=== PATIENT | female | born 1965 | race Native Hawaiian/Other Pacific Islander ===

== ENCOUNTER 2017-12-28 02:25 | Emergency (ER) | payer OTHER ==
[2017-12-28] MEDS ORDERED: Albuterol-Ipratrop 3 mg / 0.5 (3 ml) UD ONE (02:42)
[2017-12-28] MEDS ORDERED: Albuterol-Ipratrop 3 mg / 0.5 (3 ml) UD INH STA (02:48)
[2017-12-28] MEDS ORDERED: Albuterol 0.083% Inhal Sol (2.5 mg/3 mL) UD IH STA (03:09)
[2017-12-28] MEDS ORDERED: Albuterol 0.083% Inhal Sol (2.5 mg/3 mL) UD ONE (03:16)
--- NOTE | 2017-12-28 03:32 | C.PDOC ---
History Of Present Illness 52 female w/PMHx of asthma, no hx of intubation, come in for evaluation of cold sx for apst 4-5 days. Pt reports, (+) nasal congestion, dry cough. Pt was seen by PMD 5 days ago and received Rx: Zithromax, Tussinex. Pt reports, "for past 2 days, feel mild chest tightness with cough, was using Pro-Air, ran out yesterday". Otherwise, pt denies fever, chills, headache, dizziness, drooling, neck pain, CP, dyspnea, palpitation, wheezing, abd. pain, N/V/D, UTI sx. Ambulate to ED for evaluation, not in any apparent distress. Time Seen by Provider: 12/28/17 02:36 Chief Complaint (Nursing): Cough, Cold, Congestion History Per: Patient Past Medical History Reviewed: Historical Data, Nursing Documentation, Vital Signs Vital Signs: Last Vital Signs Temp 98.9 F 12/28/17 02:40 Pulse 71 12/28/17 02:40 Resp 20 12/28/17 02:40 BP 149/77 12/28/17 02:40 Pulse Ox 98 12/28/17 02:40 - Medical History PMH: Asthma Family History: States: No Known Family Hx - Social History Hx Tobacco Use: No Hx Alcohol Use: No Hx Substance Use: No Review Of Systems Except As Marked, All Systems Reviewed And Found Negative. Constitutional: Negative for: Fever, Chills ENT: Positive for: Nose Discharge, Nose Congestion. Negative for: Ear Discharge, Throat Pain, Throat Swelling Cardiovascular: Negative for: Chest Pain Respiratory: Positive for: Cough. Negative for: Sputum, Wheezing Gastrointestinal: Negative for: Nausea, Vomiting, Abdominal Pain, Diarrhea Genitourinary: Negative for: Dysuria Musculoskeletal: Negative for: Neck Pain Skin: Negative for: Rash Neurological: Negative for: Altered Mental Status, Headache, Dizziness Physical Exam - Physical Exam Appears: Well, Non-toxic, No Acute Distress Skin: Normal Color, Warm, Dry, No Rash Head: Normacephalic Eye(s): bilateral: PERRL Ear(s): Bilateral: Normal Nose: No Discharge Oral Mucosa: Moist Throat: No Erythema, No Drooling Neck: Trachea Midline, Supple Cardiovascular: Rhythm Regular Respiratory: No Decreased Breath Sounds, No Accessory Muscle Use, No Rales, No Rhonchi, No Stridor, Wheezing (scattered Right base expiratory wheezing. BS equal B/L) Gastrointestinal/Abdominal: Soft, No Tenderness, No Distention, No Guarding Extremity: Normal ROM, No Deformity, No Swelling Neurological/Psych: Oriented x3, Normal Speech ED Course And Treatment O2 Sat by Pulse Oximetry: 98 Pulse Ox Interpretation: Normal - Radiology CXR: Interpreted by Me, Viewed By Me CXR Interpretation: Yes: No Acute Disease (+RLL infiltrate?) Progress Note: On re-eval, pt is afebrile, hemodynamicaly stable. Reports, mod improvement in sx. NOn-toxic, ambulatory without SOB. PulseOx 98% RA. ENT: no acute findings. neck: Supple, (-) JVD. Lungs: CTA B/L, BS equal B/L. CVS: (+)S1S2, reg. Abd: benign. Neurologicaly intact. CXR review (-) acute fidnings. Pt has clinical findings c/w URI, asthma exacerbation. Pt advised. ref. to F/u with PMD in 2-3 days for re-eavl. return if any new changes. Disposition Counseled Patient/Family Regarding: Studies Performed, Diagnosis, Need For Followup, Rx Given - Disposition Referrals: James Jeffery MD [Staff Provider] - Disposition: HOME/ ROUTINE Disposition Time: 03:35 Condition: STABLE Additional Instructions: Encourage fluids Take medication as prescribed Follow up with PMD in 2 days for re-evaluation. Return to ED if any worsening or new changes. Prescriptions: Albuterol HFA [Ventolin HFA 90 mcg/actuation (8 g)] 1 puff IH Q6 #1 inhaler Cefdinir [Omnicef] 300 mg PO BID #14 cap Prednisone [Deltasone] 40 mg PO DAILY #8 tablet Instructions: Asthma in Adults, Upper Respiratory Infection (ED) Forms: TXCOM ([place]ian) - Clinical Impression Clinical Impression: Upper respiratory infection, Asthma
[2017-12-28 04:14] VITALS: BP 140/80; PULSE 84; RESP 14; TEMP 98.5
[2017-12-28 05:10] VITALS: O2SAT 98
--- NOTE | 2017-12-28 08:57 | RAD ---
Date of service: 12/28/2017 HISTORY: Cough COMPARISON: No prior. TECHNIQUE: Chest PA and lateral FINDINGS: LUNGS: Mild venous congestion. Minimal patchy increased markings at the left lung base. Biapical pleural thickening. Upper lobe granulomatous changes. Small nodular density at the right lung apex. PLEURA: No significant pleural effusion identified. No pneumothorax apparent. CARDIOVASCULAR: No atherosclerotic calcification present Tortuous ectatic aorta. OSSEOUS STRUCTURES: No significant abnormalities. VISUALIZED UPPER ABDOMEN: Normal. OTHER FINDINGS: None. IMPRESSION: Mild venous congestion. Minimal patchy increased markings at the left lung base. Biapical pleural thickening. Upper lobe granulomatous changes. Small nodular density at the right lung apex.
== END 2017-12-28 04:10 | disposition home or self-care (01) ==
LOC: C.ER 02:25
DX: J06.9 Acute upper respiratory infection, unspecified (principal); J45.901 Unspecified asthma with (acute) exacerbation